=== PATIENT | female | born 1990 | race Caucasian/White ===

== ENCOUNTER 2022-03-10 09:51 | Emergency (ER) | payer MEDICAID ==
[2022-03-10] MEDS ORDERED: predniSONE 20 MG Tab PO ONE (10:59)
[2022-03-10] MEDS ORDERED: Albuterol/Ipratropium 3.0-0.5 MG/3 ML Neb Soln NEB ONE (10:59)
[2022-03-10 11:37] LABS: CORONAVIRUS COVID-19 NAA POSITIVE (NEGATIVE)
== END 2022-03-10 13:00 | disposition home or self-care (01) ==
LOC: JD.ED 09:51
DX: U07.1 COVID-19 (principal); F41.9 Anxiety disorder, unspecified; F32.A Depression, unspecified; Z79.899 Other long term (current) drug therapy
CPT/HCPCS: 0241U; 99283; J7512